=== PATIENT | female | born 1955 | race Caucasian/White ===

== ENCOUNTER → 2017-04-23 | Outpatient (CLI) | payer OTHER ==
[~2017-04-23] VITALS: Ht 152.4 cm; Wt 115.7 kg
[~2017-04-23] MED LIST: AZO BLADDER CO300 MG PO; COZAAR100 MG PO; Caltrate 600/400 PO; Coumadin Protocol PO; ENABLEX15 MG PO; Feosol PO; HYDROCHLOROTHIA25 MG PO; LO-DOSE ASPIRIN81 M2 PO; Lasix PO; TEVETEN600 MG PO; TOPROL XL200 MG PO; Toprol XL PO; Vicodin,Norco 5/325 PO
== END | disposition home or self-care (01) ==
LOC: AMB 03-23 12:30 → OPR 03-26 15:00 → AMB 12:17
PROC: 0DJD8ZZ Inspection of Lower Intestinal Tract, Via Natural or Artificial Opening Endoscopic (ICD-10-PCS; principal; 2017-04-23)
DX: K64.8 Other hemorrhoids (principal); K57.30 Diverticulosis of large intestine without perforation or abscess without bleeding; I10 Essential (primary) hypertension; Z81.8 Family history of other mental and behavioral disorders; Z82.49 Family history of ischemic heart disease and other diseases of the circulatory system; Z80.0 Family history of malignant neoplasm of digestive organs; Z79.82 Long term (current) use of aspirin; Z88.0 Allergy status to penicillin
CPT/HCPCS: J3010